=== PATIENT | male | born 1960 | race Hispanic/Latino ===

== ENCOUNTER 2019-06-16 09:51 | Emergency (ER) | payer SELFPAY ==
[2019-06-16] MEDS ORDERED: Proparacaine 0.5% Opth 15 ML BOT ONE (10:08)
[2019-06-16] MEDS ORDERED: Fluorescein Opthalmic Strip ONE (10:08)
[2019-06-16] MEDS ORDERED: Lidocaine 1% PF 5 ML VIAL ONE (10:12)
[2019-06-16] MEDS ORDERED: Lidocaine 1% (PF) 30 ML VIAL ONE (10:12)
[2019-06-16] MEDS ORDERED: Adacel (T-DAP) 0.5 ML SYRINGE ONE (11:25)
== END 2019-06-16 11:32 | disposition home or self-care (01) ==
LOC: ERS 09:51
DX: S01.112A Laceration without foreign body of left eyelid and periocular area, initial encounter (principal); W22.8XXA Striking against or struck by other objects, initial encounter
CPT/HCPCS: 90471; 90715; J2001